=== PATIENT | male | born 1975 | race Caucasian/White ===

== ENCOUNTER 2017-03-17 10:11 | Emergency (ER) | payer MEDICAID ==
[~2017-03-17] VITALS: Ht 160 cm; Wt 73.0 kg
[~2017-03-17 10:11] MED LIST: CARB200T4 PO; PHEN100C4 PO
[2017-03-17 11:48] VITALS: BP 133/98
[2017-03-17] MEDS ORDERED: CARB200T3 PO (21:00)
== END 2017-03-17 11:50 | disposition home or self-care (01) ==
LOC: MERGE 11:45 → ED 11:45
DX: G40.309 Generalized idiopathic epilepsy and epileptic syndromes, not intractable, without status epilepticus (principal)
CPT/HCPCS: 36415; 80156; 80185; 99284

== ENCOUNTER 2017-03-17 20:36 | Emergency (ER) | payer MEDICAID ==
[~2017-03-17] VITALS: Ht 172.7 cm; Wt 85.0 kg
[2017-03-17] MEDS ORDERED: CARB200T3 PO (21:00)
[2017-03-17] MEDS ORDERED: ONDANSETRON 2MG/ML, 2ML ONE (21:16)
[2017-03-17] MEDS ORDERED: LORazepam 2 MG/ML, 1ML ONE (21:17)
[2017-03-17] MEDS ORDERED: LORazepam 2 MG/ML, 1ML IVPush ONE (21:30)
[2017-03-17] MEDS ORDERED: SODIUM CHLORIDE 0.9% 1,000ML IVBOLUS ONE (21:30)
[2017-03-17] MEDS ORDERED: SODIUM CHLORIDE FLUSH 10ML SYR IVF ONE (21:30)
[2017-03-17] MEDS ORDERED: ONDANSETRON 2MG/ML, 2ML IVPush ONE (21:30)
[2017-03-17 21:39] LABS: ASPARTATE AMINO TRANSFERASE 29 U/L (15-37); BLOOD UREA NITROGEN 18 mg/dL (7-18)
[2017-03-17 23:07] VITALS: BP 116/71
== END 2017-03-17 23:59 | disposition home or self-care (01) ==
LOC: ED 20:55
DX: R56.9 Unspecified convulsions (principal)
CPT/HCPCS: 36415; 70450; 80053; 80185; 80307; 85025; 93005; 96361; 96374; 96375; 99285; J2060; J2405; J7030

== ENCOUNTER → 2017-10-09 | Outpatient (CLI) | payer MEDICAID ==
[~2017-10-09] MED LIST changes: +CARB200T PO; +CARB200T3 PO; +LAMO25TA PO; +PHEN100C PO
== END ==
LOC: STAR 10:03
PROVIDERS: ATTEND Orthopaedic Surgery
DX: Z02.9 Encounter for administrative examinations, unspecified (principal)

== ENCOUNTER 2017-10-17 13:23 | Day surgery (SDC) | payer MEDICAID ==
[~2017-10-17] VITALS: Ht 160 cm; Wt 71.7 kg
[~2017-10-17 13:23] MED LIST changes: +CEFAZOLIN 1,000 MG ONE; +DEXAMETHASONE 4 MG/ML, 1ML ONE; +KETOROLAC 30 MG/1 ML ONE; +ONDANSETRON 2MG/ML, 2ML ONE; +PROPOFOL 10 MG/ML, 20ML ONE; +ROCURONIUM 10 MG/ML,10ML ONE
[2017-10-17] MEDS ORDERED: EPINEPHRINE 1 MG/ML, 1ML ONE (13:49)
[2017-10-17] MEDS ORDERED: BUPIVACAINE/PF 0.5% ONE (13:49)
[2017-10-17] MEDS ORDERED: LACTATED RINGERS 1,000 ML IV SCH (14:00)
[2017-10-17 14:01] VITALS: BP 127/65
[2017-10-17] MEDS ORDERED: BACITRACIN 50,000 UNIT ONE (15:26)
[2017-10-17] MEDS ORDERED: hydrALAzine 20 MG/ML, 1ML IV PRN (15:30)
[2017-10-17] MEDS ORDERED: MEPERIDINE/PF 25MG/0.5ML IVPush PRN (15:30)
[2017-10-17] MEDS ORDERED: ONDANSETRON 2MG/ML, 2ML IVPush PRN (15:30)
[2017-10-17] MEDS ORDERED: ACETAMINOPHEN 325 MG TABLET PO PRN (15:30)
[2017-10-17] MEDS ORDERED: LABETALOL 5MG/ML, 20ML IV PRN (15:30)
[2017-10-17] MEDS ORDERED: FENTANYL PF 100 MCG/2ML IV PRN (15:30)
[2017-10-17] MEDS ORDERED: PROMETHAZINE 25 MG/ML, 1ML IV PRN (15:30)
[2017-10-17] MEDS ORDERED: OXYcodone 5 MG/5 ML ORAL.SOL UDC PO PRN (15:30)
[2017-10-17] MEDS ORDERED: HYDROmorphone 1 MG/ML, 1ML IV PRN (15:30)
[2017-10-17] MEDS ORDERED: ACETAMINOPHEN 650 MG/20.3 ML UDC ONE (16:20)
[2017-10-17] MEDS ORDERED: OXYcodone 5 MG/5 ML ORAL.SOL UDC ONE (16:21)
== END 2017-10-17 18:08 | disposition home or self-care (01) ==
LOC: OUT 13:23
PROVIDERS: ATTEND Orthopaedic Surgery
DX: G56.01 Carpal tunnel syndrome, right upper limb (principal); Z87.891 Personal history of nicotine dependence
CPT/HCPCS: 64721; C1763; J0171; J0690; J1100; J1885; J2405; J2704; J3490; J7120

== ENCOUNTER 2019-12-16 16:20 | Emergency (ER) | payer MEDICAID ==
[~2019-12-16] VITALS: Ht 160 cm; Wt 68.0 kg
[~2019-12-16 16:20] MED LIST changes: -CEFAZOLIN 1,000 MG ONE; -DEXAMETHASONE 4 MG/ML, 1ML ONE; -KETOROLAC 30 MG/1 ML ONE; -LAMO25TA PO; +LAMO25TA9 PO; -ONDANSETRON 2MG/ML, 2ML ONE; -PROPOFOL 10 MG/ML, 20ML ONE; -ROCURONIUM 10 MG/ML,10ML ONE
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
--- NOTE | 2019-12-16 16:32 | NUR ---
PT'S 'S NUMBER [phone](CELL) [phone](HOME)
[2019-12-16] MEDS ORDERED: LORA-445 PO (16:34)
[2019-12-16] MEDS ORDERED: CARB200T PO (16:35)
--- NOTE | 2019-12-16 16:36 | NUR ---
EKG DONE AT BEDSIDE BY EMT.
[2019-12-16] MEDS ORDERED: SODIUM CHLORIDE FLUSH 10ML SYR IVF ONE (17:00)
[2019-12-16 17:04] LABS: BASOPHILS # (AUTO) 0.01 x10^3/uL (0-0.1); BASOPHILS % (AUTO) 0 % (0-1); EOSINOPHILS # (AUTO) 0.06 x10^3/uL (0-0.4); EOSINOPHILS % (AUTO) 1 % (1-7); LYMPHOCYTES # (AUTO) 1.63 x10^3/uL (1-3.4); LYMPHOCYTES % (AUTO) 17 % (22-44); MD NO; MEAN CORPUSCULAR HEMOGLOBIN 31.9 pg (27.5-34.5); MEAN CORPUSCULAR HGB CONC 33.7 g/dL (33.2-36.2); MEAN CORPUSCULAR VOLUME 94.8 fL (81-97); MONOCYTES % (AUTO) 4 % (2-9); NEUTROPHILS # (AUTO) 7.62 x10^3/uL (1.8-6.8); NEUTROPHILS % (AUTO) 78 % (42-75); PLATELET COUNT 280 x10^3/uL (130-400); RED BLOOD COUNT 4.74 x10^6/uL (4.38-5.82); RED CELL DISTRIBUTION WIDTH 13.9 % (9.4-14.8)
[2019-12-16 17:17] LABS: ALANINE AMINOTRANSFERASE 35 U/L (12-78); ALBUMIN 4.2 g/dL (3.4-5.0); ANION GAP 5 mmol/L (5-15); CALCIUM 9.1 mg/dL (8.5-10.1); CHLORIDE 108 mmol/L (98-107); CREATININE 0.72 mg/dL (0.7-1.3)
--- NOTE | 2019-12-16 17:31 | NUR ---
PT RESTING IN [facility]. PT'S AOX4. RESPS EVEN AND UNLABORED. ALL MONITORS IN PLACE. CALL LIGHT WITHIN REACH.
[2019-12-16 17:46] LABS: ALKALINE PHOSPHATASE 96 U/L (45-117); TOTAL PROTEIN 8.1 g/dL (6.4-8.2)
[2019-12-16 17:47] LABS: BILIRUBIN,TOTAL < 0.1 mg/dL (0.2-1.0)
[2019-12-16] MEDS ORDERED: ASPIRIN 81 MG TABLET CHEW ONE (18:04)
[2019-12-16 18:28] VITALS: BP 141/89
--- NOTE | 2019-12-16 18:28 | NUR ---
PT AMB TO BR WITH STEADY GAIT. PT'S AOX4. RESPS EVEN AND UNLABORED.
--- NOTE | 2019-12-16 18:31 | NUR ---
PT BACK TO ROOM FROM WITH STEADY GAIT.
--- NOTE | 2019-12-16 18:35 | NUR ---
THIS RN CALLED HIS TO PICK PT UP. PT'S WILL BE HERE IN 10MIN.
--- NOTE | 2019-12-16 18:41 | NUR ---
Patient given discharge instructions and they have confirmed that they understand the instructions. Patient ambulatory with steady gait.
== END 2019-12-16 18:42 | disposition home or self-care (01) ==
LOC: ED 17:20
DX: G40.309 Generalized idiopathic epilepsy and epileptic syndromes, not intractable, without status epilepticus (principal)
CPT/HCPCS: 36415; 80053; 80156; 80175; 80185; 85025; 93005; 99284

== ENCOUNTER 2019-12-16 19:52 | Emergency (ER) | payer MEDICAID ==
[~2019-12-16] VITALS: Ht 160 cm; Wt 70.0 kg
[~2019-12-16 19:52] MED LIST changes: +LORA-445 PO
[2019-12-16 20:01] VITALS: BP 150/85
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
--- NOTE | 2019-12-16 20:12 | NUR ---
December Phone number [phone]
--- NOTE | 2019-12-16 20:14 | NUR ---
EKG DONE BY LORAINE
--- NOTE | 2019-12-16 20:21 | NUR ---
PT IN CT
--- NOTE | 2019-12-16 20:47 | NUR ---
PT BACK FROM CT. REPORT GIVEN TO REENA DURAN
--- NOTE | 2019-12-16 20:55 | NUR ---
PT RETURNED FROM CT. AWAKE/ALERT, A&OX4. ADVERTISING COORDINATOR STATES THAT WHILE IN CT PT WAS DISORIENTED, PULLING AT LEADS, AND TAKING GOWN OFF. UPON RETURN, PT CHANGED BACK INTO GOWN, BP/SPO2/ECG MONITORING PLACED. SZ PRECAUTIONS IN PLACE. SIDE RAILS UP X2 AND FALL PRECAUTIONS REVIEWED WITH PT. CALL LIGHT WITHIN REACH. PT AGREES TO CALL FOR RN WITH NEEDS. NSR ON MONITOR. SPO2 89-90% ON RA, PLACED ON 4L BY NC, SPO2 TO 96%. RR WNL. PT MOVING ALL EXTREMITIES AND DENIES PAIN.
--- NOTE | 2019-12-16 21:20 | NUR ---
PT REMAINS ALERT/ORIENTED, REQUESTING "TO GO HOME". PT MADE AWARE OF PENDING LABS/IMAGING AND NEED FOR UDS. PT PROVIDED URINE SAMPLE. UDS COLLECTED AND SENT TO LAB
[2019-12-16] MEDS ORDERED: NEOSPORIN OINT. PKT 1 PACKET ONE (21:36)
[2019-12-16 21:37] LABS: AMPHETAMINE SCREEN, URINE Negative (Negative); BARBITURATE SCREEN, URINE Negative (Negative); BENZODIAZEPINE SCREEN, URINE Positive (Negative); CANNABINOID SCREEN, URINE Positive (Negative); COCAINE SCREEN, URINE Negative (Negative); METHADONE SCREEN, URINE Negative (Negative); OPIATE SCREEN, URINE Negative (Negative)
--- NOTE | 2019-12-16 22:03 | NUR ---
PT CONTINUES TO REST CALMLY IN [facility]. NO SZ ACTIVITY NOTED. PT A&OX4. WOUNDS CLEANED/DRESSED BY TECH.
--- NOTE | 2019-12-16 22:12 | NUR ---
CONTACTED PT'S DECEMBER @ [phone] FOR TRANSPORT FOR PT HOME. STATES THAT SHE WILL BE ARRIVING SHORTLY TO [facility] CHAIR PT. IV DC'D AND PT ASSISTED TO DRESS AT THIS TIME.
--- NOTE | 2019-12-16 22:27 | NUR ---
PT CONTINUES TO BE A&OX4, NO SZ ACTIVITY NOTED WHILE IN ED. DC EDUCATION PROVIDED, PT DEMONSTRATES UNERSTANDING. PT AMBULATED STEADILY TO WHEELCHAIR AT DOORWAY. WHEELED TO DC WITH RN. TO TRANSPORT PT HOME.
== END 2019-12-16 22:30 | disposition home or self-care (01) ==
LOC: ED 20:24
DX: G40.409 Other generalized epilepsy and epileptic syndromes, not intractable, without status epilepticus (principal); S80.212A Abrasion, left knee, initial encounter; S80.211A Abrasion, right knee, initial encounter; S00.81XA Abrasion of other part of head, initial encounter; S40.212A Abrasion of left shoulder, initial encounter; S40.211A Abrasion of right shoulder, initial encounter; X58.XXXA Exposure to other specified factors, initial encounter; Y93.89 Activity, other specified; Y92.89 Other specified places as the place of occurrence of the external cause; Y99.8 Other external cause status
CPT/HCPCS: 36415; 70450; 80307; 93005; 99285

== ENCOUNTER 2020-07-13 12:24 | Outpatient (CLI) | payer MEDICAID | END 2020-07-13 23:59 | disposition home or self-care (01) | LOC: CARD 12:24 | PROVIDERS: ATTEND Registered Nurse | DX: G40.909 Epilepsy, unspecified, not intractable, without status epilepticus (principal) | CPT/HCPCS: 95819 ==

== ENCOUNTER 2020-09-18 08:53 | Emergency (ER) | payer MEDICAID ==
[~2020-09-18] VITALS: Ht 160 cm; Wt 70.0 kg
--- NOTE | 2020-09-18 09:16 | NUR ---
BIB [facility] POST SIZURE PT POST ICTAL A03 ON ARRIVAL HX SIEZURES W RECENT MED CHANGE PT REPORTS COMPLIANT ON MEDS AND NO DRUG USE ARRIVED IV IN PLACE PLACED ON FULL MONITORING
[2020-09-18 09:29] LABS: BASOPHILS % (AUTO) 1 % (0-1); EOSINOPHILS % (AUTO) 2 % (1-7); LYMPHOCYTES % (AUTO) 24 % (22-44); MD NO; MEAN CORPUSCULAR HEMOGLOBIN 32.7 pg (27.5-34.5); MEAN CORPUSCULAR HGB CONC 34.1 g/dL (33.2-36.2); MEAN PLATELET VOLUME 6.8 fL (7.4-10.4); MONOCYTES % (AUTO) 5 % (2-9); NEUTROPHILS % (AUTO) 69 % (42-75); PLATELET COUNT 304 x10^3/uL (130-400); RED BLOOD COUNT 4.56 x10^6/uL (4.38-5.82)
[2020-09-18 09:32] LABS: ALANINE AMINOTRANSFERASE 30 U/L (12-78); ALBUMIN 3.8 g/dL (3.4-5.0); ANION GAP 9 mmol/L (5-15); CHLORIDE 111 mmol/L (98-107); CREATININE 0.89 mg/dL (0.7-1.3)
[2020-09-18 09:35] LABS: ALKALINE PHOSPHATASE 97 U/L (45-117); BILIRUBIN,TOTAL 0.2 mg/dL (0.2-1.0); TOTAL PROTEIN 7.4 g/dL (6.4-8.2)
[2020-09-18 11:28] VITALS: BP 138/78
[2020-09-19] MEDS ORDERED: LAMO25TA9 PO (11:57)
[2020-09-19] MEDS ORDERED: PHEN100C PO (12:08)
[2020-09-19] MEDS ORDERED: CARB200T PO (12:08)
== END 2020-09-18 11:31 | disposition home or self-care (01) ==
LOC: ED 09:03
DX: G40.409 Other generalized epilepsy and epileptic syndromes, not intractable, without status epilepticus (principal); R94.31 Abnormal electrocardiogram [ECG] [EKG]
CPT/HCPCS: 36415; 80053; 80185; 85025; 93005; 99284

== ENCOUNTER 2020-09-18 12:25 | Observation (INO) | payer MEDICAID ==
[~2020-09-18] VITALS: Ht 162.6 cm; Wt 68.0 kg
--- NOTE | 2020-09-18 12:58 | NUR ---
SEIZURE IN THE LOBBY HX OF SEIZURES W RECENT MED CHANGE HERE EARLIER FOR SAME HAD BEEN A DC PT VERY COMPATIVE IN THE LOBBY PLACED ON A COT AND TAKEN TO ROOM 9 MEDS GIVEN PER ORDERS ERP TO THE BS ON ARRIVAL TO THE ROOM PLACED ON FULL MONITORING SECURITY AT THE BS MONITORING PT IN 4 PTS
[2020-09-18] MEDS ORDERED: PLEASE ENTER HEIGHT AND WEIGHT MC SCH (13:00)
[2020-09-18] MEDS ORDERED: LORazepam 2 MG/ML, 1ML IVPush ONE (13:00)
[2020-09-18] MEDS ORDERED: SODIUM CHLORIDE FLUSH 10ML SYR IVF ONE (13:00)
--- NOTE | 2020-09-18 13:03 | NUR ---
PT CALMING FOUR PT RESTRAINTS REDUCED TO TWO PT
--- NOTE | 2020-09-18 13:15 | NUR ---
OUT OF ALL RESTRAINTS
[2020-09-18] MEDS ORDERED: LEVETIRACETAM 1,000 MG in SODIUM CHLORIDE 0.9% 100 ML IV ONE (14:30)
[2020-09-18] MEDS ORDERED: SODIUM CHLORIDE FLUSH 10ML SYR IVF PRN (14:30)
[2020-09-18] MEDS ORDERED: LORazepam 2 MG/ML, 1ML ONE (14:47)
--- NOTE | 2020-09-18 15:00 | NUR ---
jeffery infused- pt resting comforatbly
--- NOTE | 2020-09-18 15:30 | NUR ---
report given to Zach VALLES for room 521-2
[2020-09-18 15:56] VITALS: BP 102/67
[2020-09-18] MEDS ORDERED: LEVETIRACETAM 1,000 MG in SODIUM CHLORIDE 0.9% 100 ML IV SCH (16:00)
[2020-09-18] MEDS ORDERED: ACETAMINOPHEN 325 MG TABLET PO PRN (17:00)
[2020-09-18] MEDS ORDERED: FLU VACC QS2020-21(6MOS UP)/PF 60MCG/0.5 ML SYR IM-VACC ONE ×2 (17:30→21:00)
[2020-09-18] MEDS ORDERED: ENOXAPARIN 40 MG/0.4 ML SQ SCH (18:00)
[2020-09-18 19:36] VITALS: BP 127/78
[2020-09-18] MEDS: CARBAMAZEPINE 200 MG TABLET PO SCH (20:22)
[2020-09-18] MEDS: LAMOTRIGINE 100 MG TABLET PO SCH (20:23)
[2020-09-18] MEDS: NEOSPORIN OINT, 15GM TP SCH (23:23)
[2020-09-19 01:01] VITALS: BP 138/72
[2020-09-19 06:08] LABS: BASOPHILS % (AUTO) 1 % (0-1); EOSINOPHILS % (AUTO) 1 % (1-7); LYMPHOCYTES % (AUTO) 29 % (22-44); MEAN CORPUSCULAR HEMOGLOBIN 32.6 pg (27.5-34.5); MEAN CORPUSCULAR HGB CONC 34.3 g/dL (33.2-36.2); MEAN PLATELET VOLUME 6.7 fL (7.4-10.4); MONOCYTES % (AUTO) 7 % (2-9); NEUTROPHILS % (AUTO) 63 % (42-75); PLATELET COUNT 275 x10^3/uL (130-400); RED BLOOD COUNT 4.35 x10^6/uL (4.38-5.82); RED CELL DISTRIBUTION WIDTH 13.8 % (9.4-14.8)
[2020-09-19 06:15] LABS: MD NO
[2020-09-19 07:12] LABS: ALBUMIN 3.7 g/dL (3.4-5.0); ANION GAP 5 mmol/L (5-15); CALCIUM 8.5 mg/dL (8.5-10.1); CHLORIDE 114 mmol/L (98-107)
[2020-09-19 07:24] LABS: ALANINE AMINOTRANSFERASE 32 U/L (12-78); ALKALINE PHOSPHATASE 89 U/L (45-117); BILIRUBIN,TOTAL 0.4 mg/dL (0.2-1.0); CREATININE 0.78 mg/dL (0.7-1.3); TOTAL PROTEIN 7.1 g/dL (6.4-8.2)
[2020-09-19 08:10] VITALS: BP 123/70
[2020-09-19] MEDS ORDERED: PHENYTOIN 100 MG CAPSULE PO SCH (09:00)
[2020-09-19] MEDS: LAMOTRIGINE 100 MG TABLET PO SCH (10:14)
[2020-09-19] MEDS: CARBAMAZEPINE 200 MG TABLET PO SCH (10:14)
[2020-09-19] MEDS: NEOSPORIN OINT, 15GM TP SCH (10:14)
[2020-09-19] MEDS ORDERED: LAMO25TA9 PO (11:57)
[2020-09-19] MEDS ORDERED: CARB200T PO (12:08)
[2020-09-19] MEDS ORDERED: PHEN100C PO (12:08)
== END 2020-09-19 13:00 | disposition home or self-care (01) ==
LOC: ED 12:40 → INTOOBSV 14:24 → ORIP 14:24 → 5SO 15:28 → DCLOUNGE 09-19 12:50
PROVIDERS: ADMIT Internal Medicine; ATTEND Internal Medicine
DX: G40.409 Other generalized epilepsy and epileptic syndromes, not intractable, without status epilepticus (principal); S80.02XA Contusion of left knee, initial encounter; S80.01XA Contusion of right knee, initial encounter; S50.01XA Contusion of right elbow, initial encounter; S09.90XA Unspecified injury of head, initial encounter; F12.90 Cannabis use, unspecified, uncomplicated; R73.9 Hyperglycemia, unspecified; Z79.899 Other long term (current) drug therapy; Z87.891 Personal history of nicotine dependence; X58.XXXA Exposure to other specified factors, initial encounter; Y93.89 Activity, other specified; Y92.89 Other specified places as the place of occurrence of the external cause
CPT/HCPCS: 36415; 70450; 80053; 83036; 83735; 84100; 84443; 85025; 96372; 96374; 96375; 96376; 99284; G0378; J1650; J1953; J2060